=== PATIENT | female | born 1980 | race Caucasian/White ===

== ENCOUNTER 2024-03-28 17:03 | Emergency (ER) | payer OTHER ==
[2024-03-28] MEDS ORDERED: clonazePAM 1 MG TAB ONE (17:35)
--- NOTE | 2024-03-28 17:44 | ER ---
Nurse's Notes [facility] Name: Fátima Suggs Age: 43 yrs Sex: Female : 1980 Arrival Date: 03/28/2024 Time: 17:03 Bed 18 Private MD: Diagnosis: Anxiety disorder, unspecified Presentation: 03/28 17:25 Chief complaint: Patient states: she has severe anxiety the past few days with hx of me1 recent substance abuse. She stopped using cocaine and methamphetamine one week ago. Started seroquel 3 weeks ago for anxiety with no relief. Denies SI and HI. Coronavirus screen: Vaccine status: Patient reports receiving the 2nd dose of the covid vaccine. Ebola Screen: No symptoms or risks identified at this time. Initial Sepsis Screen: Does the patient meet any 2 criteria? No. Patient's initial sepsis screen is negative. Does the patient have a suspected source of infection? No. Patient's initial sepsis screen is negative. Risk Assessment: Do you want to hurt yourself or someone else? Patient reports no desire to harm self or others. Onset of symptoms is unknown. 17:25 Method Of Arrival: Amb[place] [facility] [place] 17:25 Acuity: SARAH 4 me1 Triage Assessment: 17:27 General: Appears in no apparent distress. well groomed, well developed, Behavior is me1 cooperative, appropriate for age, anxious. Pain: Denies pain. EENT: No deficits noted. Neuro: Level of Consciousness is awake, alert, obeys commands, Oriented to person, place, time, situation, Appropriate for age. Cardiovascular: Patient's skin is warm and dry. Respiratory: Airway is patent Respiratory effort is even, unlabored, Respiratory pattern is regular, symmetrical. GI: No signs and/or symptoms were reported involving the gastrointestinal system. : No signs and/or symptoms were reported regarding the genitourinary system. Derm: Skin is intact, is healthy with good turgor, Skin is pink, warm \\T\\ dry. Musculoskeletal: No signs and/or symptoms reported regarding the musculoskeletal system. Historical: - Allergies: 17:27 Codeine; me1 - PMHx: 17:27 Anxiety; Bipolar disorder; Drug abuse; Depressive disorder; me1 - PSHx: 17:27 Appendectomy; wisdom teeth extraction; cataract surgery bilaterally; me1 - Immunization history:: Adult Immunizations up to date. - Infectious Disease History:: Denies. - Social history:: Smoking status: Reported history of juuling and/or vaping. Screenin:30 [facility] ED Fall Risk Assessment (Adult) History of falling in the last 3 months, bp including since admission No falls in past 3 months (0 pts) Confusion or Disorientation No (0 pts) Intoxicated or Sedated No (0 pts) Impaired Gait No (0 pts) Mobility Assist Device Used No (0 pt) Altered Elimination No (0 pt) Score/Fall Risk Level 0 - 2 = Low Risk Oriented to surroundings. Abuse screen: Denies threats or abuse. Denies injuries from another. Nutritional screening: No deficits noted. Tuberculosis screening: No symptoms or risk factors identified. Assessment: 17:30 General: Appears in no apparent distress. comfortable, Behavior is cooperative, bp appropriate for age, anxious. Psych: 18:05 [place] Suicide Severity Screening: In the past month, have you wished you were bp or wished you could go to sleep and not wake up? Patient responds "No." "In the past month, have you actually had any thoughts of killing yourself?" Patient responds "no." "In your lifetime, have you ever done anything, started to do anything, or prepared to do anything to end your life?" Patient responds "no.". Subjective: Hallucinations are denied. Objective: Patient is cooperative, Speech is normal, Affect is appropriate. Interventions: N/A. Safety Checks: N/A. Pt denies substance abuse. Commitment: N/A. Vital Signs: 17:25 BP 122 / 92; Pulse 98; Resp 18; Temp 98.6; Pulse Ox 99% ; Weight 74.84 kg; Height 5 ft. me1 5 in. ; Pain 0/10; 17:25 Body Mass Index 27.46 (74.84 kg, 165.1 cm) me1 17:25 Pain Scale: Adult me1 ED Course: 17:08 Patient arrived in ED. ra3 17:08 Nguyen Larry PA-C is PHCP. sb4 17:08 Alyssa Last MD is Attending Physician. sb4 17:27 Triage completed. me1 17:27 Arm band placed on Patient placed in an exam room. me1 17:30 Patient has correct armband on for positive identification. bp 17:30 No provider procedures requiring assistance completed. Patient did not have IV access bp during this emergency room visit. 17:32 Paul Benitez, RN is Primary Nurse. bp 17:43 Ashok Diallo MD is Referral Physician. sb4 Administered Medications: 17:40 Drug: clonazePAM PO 1 mg PO once Route: PO; bp 17:47 Follow up: Response: No adverse reaction bp Medication: 17:30 VIS not applicable for this client. bp Outcome: 17:30 Discharged to home ambulatory, bp 17:30 Condition: stable 17:30 Discharge instructions given to patient, Instructed on discharge instructions, follow up and referral plans. medication usage, Demonstrated understanding of instructions, follow-up care, medications, Prescriptions given X 1, 17:43 Discharge ordered by . sb4 18:07 Patient left the ED. bp Signatures: Paul Benitez, RN RN Nguyen Laurent, PA-C PA-C sb4 Lidia Chapin RN RN me1 Sara Cagle ra3 Corrections: (The following items were deleted from the chart) 17:29 17:27 PMHx: None; me1 me1
--- NOTE | 2024-03-28 17:44 | EDPHYS ---
Physician Documentation [facility] Name: Fátima Suggs Age: 43 yrs Sex: Female : 1980 Arrival Date: 03/28/2024 Time: 17:03 Bed 18 Private MD: ED Physician Alyssa Last HPI: 03/28 18:49 This 43 yrs old Female presents to ER via Ambulatory with complaints of Psych Problem - sb4 Eval. 18:49 The patient presents to the emergency department with anxiety. sb4 18:53 Patient reports history of depression, anxiety, bipolar disorder. States that she has sb4 been under a lot of stress lately. States that she was recently started on Seroquel as needed for her anxiety but it is not completely controlling it. Denies any suicidal or homicidal ideation, she just feels very overwhelmed. States that she was on Klonopin in the past which did help her symptoms. States that she has never abused benzodiazepines in the past. Historical: - Allergies: 17:27 Codeine; me1 - PMHx: 17:27 Anxiety; Bipolar disorder; Drug abuse; Depressive disorder; me1 - PSHx: 17:27 Appendectomy; wisdom teeth extraction; cataract surgery bilaterally; me1 - Immunization history:: Adult Immunizations up to date. - Infectious Disease History:: Denies. - Social history:: Smoking status: Reported history of juuling and/or vaping. ROS: 18:53 Constitutional: Negative for fever, chills, and weight loss, sb4 18:53 Psych: Positive for anxiety, 18:53 All other systems are negative, Exam: 18:53 Head/Face: Normocephalic, atraumatic. Eyes: Extra-ocular motions intact. Periorbital sb4 areas with no swelling, redness, or edema. ENT: Mucous membranes moist. Respiratory: No increased work of breathing, no retractions or nasal flaring. Skin: Warm, dry with normal turgor. Normal color with no rashes, no lesions, and no evidence of cellulitis. 18:53 Constitutional: The patient appears alert, awake, anxious, 18:53 Psych: Behavior/mood is pleasant, cooperative, anxious, Affect is calm, Oriented to person, place, time, Patient has no thoughts/intents to harm self or others. Judgement / Insight is normal. Memory is normal. Delusions/hallucinations are not present. Vital Signs: 17:25 BP 122 / 92; Pulse 98; Resp 18; Temp 98.6; Pulse Ox 99% ; Weight 74.84 kg; Height 5 ft. me1 5 in. ; Pain 0/10; 17:25 Body Mass Index 27.46 (74.84 kg, 165.1 cm) me1 17:25 Pain Scale: Adult me1 MDM: 17:19 Medical Screening Exam initiated sb4 18:53 Data reviewed: vital signs, nurses notes, and as a result, I will discharge patient. sb4 Counseling: I had a detailed discussion with the patient and/or guardian regarding the historical points, exam findings, and any diagnostic results supporting the discharge/admit diagnosis, the need for outpatient follow up, a psychiatrist. ED course: Patient already has a therapist, but does she does not have a psychiatrist. I did recommend her follow-up with psychiatry or PCP to get her started on a SSRI or better regimen to control her anxiety. Will prescribe a short course of clonazepam to help her in the interim. Did discuss the abuse potential with her and she understands, she states that she will not abuse it and will return to the ED if she starts having any thoughts of harming herself or others. Administered Medications: 17:40 Drug: clonazePAM PO 1 mg PO once Route: PO; bp 17:47 Follow up: Response: No adverse reaction bp Disposition Summary: 03/28/24 17:43 Discharge Ordered Notes: Location: Home sb4 Problem: new sb4 Symptoms: have improved sb4 Condition: Stable sb4 Diagnosis - Anxiety disorder, unspecified sb4 Followup: sb4 - With: Ashok Diallo MD - When: As needed - Reason: Recheck today's complaints, Re-evaluation by your physician Discharge Instructions: - Discharge Summary Sheet sb4 - Managing Anxiety, Adult sb4 Forms: - Work release form bp - Patient Portal Instructions sb4 - Leadership Thank You Letter sb4 Prescriptions: - clonazepam 0.5 mg Oral tablet - take 1 tablet ORAL route daily PRN anxiety/panic; 5 tablet; Refills: 0, Product sb4 Selection Permitted Signatures: Paul Benitez RN RN Nguyen Laurent PA-C PA-C sb4 Lidia Chapin RN RN me1 Corrections: (The following items were deleted from the chart) 17:27 PMHx: None; me1 me1 18:55 18:49 The patient presents to the emergency department with anxiety, sb4 sb4
[2024-03-28 20:35] VITALS: BP 122/92; TEMP 98.6; O2SAT 99
== END 2024-03-28 18:07 | disposition home or self-care (01) ==
LOC: ER 17:03
DX: F41.9 Anxiety disorder, unspecified (principal)
CPT/HCPCS: 99283